=== PATIENT | female | born 1960 | race Caucasian/White ===

== ENCOUNTER → 2016-06-27 | Outpatient (CLI) | payer OTHER ==
[~2016-06-27] MED LIST: ALBU18HF IH
== END | disposition home or self-care (01) ==
LOC: PUL 09:49
PROVIDERS: ATTEND Internal Medicine
DX: J44.9 Chronic obstructive pulmonary disease, unspecified (principal)
CPT/HCPCS: 94010; 94726; 94729

== ENCOUNTER 2017-11-21 11:03 | Emergency (ER) | END 2017-11-21 13:58 | disposition home or self-care (01) ==

== ENCOUNTER 2018-02-19 12:14 | Emergency (ER) | payer OTHER ==
[~2018-02-19] VITALS: Wt 78.0 kg
[~2018-02-19 12:14] MED LIST changes: -ALBU18HF IH; +ALPR0.25 PO; +HYDR-4011 PO; +ZOLP5TAB PO
[2018-02-19 12:23] VITALS: BP 110/66; PULSE 78; RESP 18
[2018-02-19] MEDS ORDERED: IBUP-1542 PO (14:42)
--- NOTE | 2018-02-19 14:46 | ERD ---
ER Documentation Chief Complaint Chief Complaint LEFT THUMB PAIN HPI 57-year-old female presents with worsening left thumb pain. She has a remote history of uncertain injury. She is unable to extend her thumb. She denies any acute injury. Denies redness, fevers. ROS All systems reviewed and are negative except as per history of present illness. Medications Home Meds Active Scripts Ibuprofen* (Motrin*) 600 Mg Tab, 600 MG PO Q6, #30 TAB Prov:TIFFANY GILLESPIE MD 02/19/18 Hydrocodone/Acetaminophen ([place] 5-325 Tablet) 1 Each Tablet, 1 TAB PO Q6H PRN for PAIN, #7 TAB Prov:GOPI ALARCON MD 11/21/17 Reported Medications Zolpidem Tartrate* (Ambien*) 5 Mg Tablet, 5 MG PO QHS PRN for INSOMNIA, #30 TAB 11/21/17 Alprazolam* (Xanax*) 0.25 Mg Tablet, 0.25 MG PO DAILY PRN for ANXIETY, TAB 11/21/17 Allergies Allergies: Coded Allergies: No Known Allergy (Verified , 11/21/17) PMhx/Soc History of Surgery: Yes (APPENDECTOMY, TONSILLECTOMY) Anesthesia Reaction: No Hx Neurological Disorder: No Hx Respiratory Disorders: Yes (COPD, ASTHMA) Hx Cardiac Disorders: No Hx Psychiatric Problems: No Hx Miscellaneous Medical Probl: Yes (arthritis) Hx Alcohol Use: Yes (occassional) Hx Substance Use: No Hx Tobacco Use: No Smoking Status: Never smoker FmHx Family History: No diabetes, No coronary disease, No other Physical Exam Vitals Vital Signs Date Temp Pulse Resp B/P (MAP) Pulse Ox O2 O2 Flow FiO2 Time Delivery Rate 02/19/18 98.1 78 18 110/66 99 12:23 (81) Physical Exam Const: No acute distress Head: Atraumatic Eyes: Normal Conjunctiva ENT: Normal External Ears, Nose and Mouth. Neck: Full range of motion. No meningismus. Resp: Clear to auscultation bilaterally Cardio: Regular rate and rhythm, no murmurs Abd: Soft, non tender, non distended. Normal bowel sounds Skin: No petechiae or rashes Back: No midline or flank tenderness Ext: No cyanosis, or edema. Chronic deformity of the left first metacarpal phalangeal joint area. She is unable to extend her left thumb. She has mildly positive left Yonny's test and pain at the medial aspect of the dorsum of the MCP area. Neur: Awake and alert Psych: Normal Mood and Affect Procedures/MDM X-ray left thumb 2V Interpreted by me: Bones: No fracture Joints: No dislocation Foreign body: None. 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 Patient is placed in a left thumb spica splint was neurovascular intact after the splint. Patient presents with what appears to be worsening. Appears to be worsening chronic condition. Patient will be discharged home in a splint with recommendation for orthopedic and primary care follow-up. She is recommended to see a hand surgeon may need authorization for this given referral nonetheless. She has no evidence of septic arthritis, ischemia, bacterial infection. Departure Diagnosis: Primary Impression: Pain of finger Laterality: left Qualified Codes: M79.645 - Pain in left finger(s) Condition: Stable Patient Instructions: Sprain Finger, Tendonitis Referrals: CORNELIO FLORENTINO MD (PCP) FADI TAVAREZ MD Additional Instructions: No acute abnormality seen on x-ray. Likely tendinitis or chronic pain due to p revious injury. Recommend hand surgeon evaluation as an outpatient. Recheck for redness fevers, new or worsening symptoms. May need authorization from primary doctor for specialist evaluation. TIFFANY GILLESPIE MD Feb 19, 2018 14:46
== END 2018-02-19 15:01 | disposition home or self-care (01) ==
LOC: FTE 12:14
DX: M79.645 Pain in left finger(s) (principal); J44.9 Chronic obstructive pulmonary disease, unspecified
CPT/HCPCS: 29130; 73140; Z7502

== ENCOUNTER 2018-03-31 14:50 | Emergency (ER) | payer OTHER ==
[~2018-03-31] VITALS: Ht 167.6 cm; Wt 81.0 kg
[~2018-03-31 14:50] MED LIST changes: +IBUP-1542 PO
[2018-03-31 14:56] VITALS: BP 130/79; PULSE 86; RESP 18; Ht 167.6 cm; Wt 81.0 kg
[2018-03-31] MEDS ORDERED: DEXAMETHASONE (1 MG/ML PO SYG) PO ONE (16:00)
[2018-03-31] MEDS ORDERED: ATRO INH (16:29)
[2018-03-31] MEDS ORDERED: ACET325T33 PO (16:29)
[2018-03-31] MEDS ORDERED: CETI10CA PO (16:29)
[2018-03-31] MEDS ORDERED: BENZ-6 PO (16:29)
--- NOTE | 2018-03-31 17:41 | ERD ---
ER Documentation Chief Complaint Chief Complaint CHRONIC COUGH WITH REPORTS OF "TIGHT LUNGS", HX OF ASTHMA HPI 58-year-old female with history of asthma presents to the ED complaining of co ugh for the past 3 weeks. Patient states that she feels as if her lungs feel tight but denies that currently. Patient states that she has been using her albuterol nebulizer treatment every 4 hours for the past 2 days. She denies fever, chest pain. Denies taking medications for this ROS All systems reviewed and are negative except as per history of present illness. Medications Home Meds Active Scripts Acetaminophen* (Tylenol*) 325 Mg Tablet, 2 TAB PO Q6 PRN for PAIN AND OR ELEVATED TEMP, #30 TAB Prov:VI MOSQUEDA-C 03/31/18 Cetirizine Hcl* (Zyrtec*) 10 Mg Capsule, 10 MG PO DAILY, #30 TAB.CHEW Prov:VI MOSQUEDA-C 03/31/18 Ipratropium Neptune* (Atrovent HFA*) 12.9 Gm Aer.w.adap, 2 PUFF INH Q6 PRN for SHORTNESS OF BREATH, #1 EA Prov:VI MOSQUEDA-C 03/31/18 Benzonatate* (Tessalon Perle*) 100 Mg Capsule, 100 MG PO Q8H PRN for COUGH, #30 CAP Prov:VI MOSQUEDA-C 03/31/18 Ibuprofen* (Motrin*) 600 Mg Tab, 600 MG PO Q6, #30 TAB Prov:TIFFANY GILLESPIE MD 02/19/18 Hydrocodone/Acetaminophen ([place] 5-325 Tablet) 1 Each Tablet, 1 TAB PO Q6H PRN for PAIN, #7 TAB Prov:GOPI ALARCON MD 11/21/17 Reported Medications Zolpidem Tartrate* (Ambien*) 5 Mg Tablet, 5 MG PO QHS PRN for INSOMNIA, #30 TAB 11/21/17 Alprazolam* (Xanax*) 0.25 Mg Tablet, 0.25 MG PO DAILY PRN for ANXIETY, TAB 11/21/17 Allergies Allergies: Coded Allergies: No Known Allergy (Verified , 11/21/17) PMhx/Soc History of Surgery: Yes (APPENDECTOMY, TONSILLECTOMY) Anesthesia Reaction: No Hx Neurological Disorder: No Hx Respiratory Disorders: Yes (COPD, ASTHMA) Hx Cardiac Disorders: No Hx Psychiatric Problems: No Hx Miscellaneous Medical Probl: Yes (arthritis) Hx Alcohol Use: Yes (occassional) Hx Substance Use: No Hx Tobacco Use: No Physical Exam Vitals Vital Signs Date Temp Pulse Resp B/P (MAP) Pulse Ox O2 O2 Flow FiO2 Time Delivery Rate 03/31/18 98.8 86 18 130/79 99 14:56 (96) Physical Exam Const: No acute distress Head: Atraumatic Eyes: Normal Conjunctiva ENT: Normal External Ears, Nose and Mouth. Neck: Full range of motion. No meningismus. Resp: Clear to auscultation bilaterally Cardio: Regular rate and rhythm, no murmurs Abd: Soft, non tender, non distended. Normal bowel sounds Skin: No petechiae or rashes Back: No midline or flank tenderness Ext: No cyanosis, or edema Neur: Awake and alert Psych: Normal Mood and Affect Results 24 hrs Current Medications Medications Dose Sig/Meera Start Time Status Last (Trade) Ordered Route PRN Stop Time Admin Dose Reason Admin 10 mg ONCE ONCE 03/31/18 DC 03/31/18 Dexamethasone PO 16:00 16:04 (Decadron 03/31/18 16:01 Intensol Liquid) Procedures/MDM Is a well-appearing 58-year-old female presenting to the ED with history of asthma complaining of cough and using her albuterol nebulizing treatment more frequently in the past 2 days. On exam patient's lungs are clear, she did not have any signs of respiratory distress. Chest x-ray did not show infiltrates with direct pleural effusion, low suspicion for pneumonia. Patient was given Decadron in the ED. She stable to be discharged home with prescription for Zyrtec, Tylenol Atrovent and Tessalon Perles. I have instructed her to follow- up with her primary care physician to get a pulmonology referral. She stable to be discharged home CXR Mildly low lung volumes. Sharply defined hemidiaphragms. No signs of focal air space disease, pleural fluid or pneumothorax identified. The cardiomediastinal silhouette is within normal limits. Osseous thorax is intact. The overlying soft tissues are unremarkable. Departure Diagnosis: Primary Impression: Cough Condition: Stable Patient Instructions: Asthma Medications, Cough, Chronic, Uncertain Cause, (Adult) Referrals: CORNELIO FLORENTINO MD (PCP) Additional Instructions: FOLLOW UP WITH YOUR PRIMARY CARE PHYSICIAN TOMORROW.Return to this facility if you are not improving as expected. Take all medicines as directed. Return to this facility if you are not improving as expected. VI MOSQUEDA PA-C Mar 31, 2018 17:41
== END 2018-03-31 16:44 | disposition home or self-care (01) ==
LOC: FTE 14:50
DX: J45.909 Unspecified asthma, uncomplicated (principal); J44.9 Chronic obstructive pulmonary disease, unspecified
CPT/HCPCS: 71046; Z7502; Z7610